=== PATIENT | male | born 2000 | race Two or more races ===

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

== ENCOUNTER 2021-01-05 13:10 | Emergency (ER) | payer SELFPAY ==
[~2021-01-05] VITALS: Ht 167.6 cm; Wt 68.0 kg
[~2021-01-05 13:10] MED LIST: BENZ100C PO; COVID 19 test
[2021-01-05 13:30] VITALS: BP 150/72
[2021-01-05] MEDS ORDERED: HYDROcodone/APAP 5/325MG 1 TAB TABLET PO ONE (14:45)
[2021-01-05] MEDS ORDERED: NEOMY/BACITR/POLYMYXIN OINT PACKET. TP ONE (14:56)
[2021-01-05] MEDS ORDERED: BACITRACIN TOPICAL OINT PACKET. TP ONE (15:00)
[2021-01-05] MEDS ORDERED: DIPH,PERTUSS(ACELL),TET VAC/PF 0.5 ML SYRINGE. VAX IM ONE (15:15)
[2021-01-05] MEDS ORDERED: CEPH500T PO (15:17)
[2021-01-05] MEDS ORDERED: BACI28.34 TP (15:17)
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
== END 2021-01-05 15:24 | disposition home or self-care (01) ==
LOC: ER 13:10
DX: S91.312D Laceration without foreign body, left foot, subsequent encounter (principal); Y28.8XXD Contact with other sharp object, undetermined intent, subsequent encounter
CPT/HCPCS: 90471; 90715; 99283-25